=== PATIENT | male | born 1975 | race American Indian/Alaskan Native ===

== ENCOUNTER 2017-11-20 15:45 | Emergency (ER) | payer SELFPAY ==
--- NOTE | 2017-11-20 17:11 | XRay Report ---
FINAL REPORT EXAM: XR FINGER(S) 2+V RT HISTORY: laceration rt index finger TECHNIQUE: 3 views of the right index finger PRIORS: None. FINDINGS: Bandage limits the evaluation. There is no radiographic evidence of definite acute fracture or dislocation. No evidence of osseous lesion. Joint spaces are maintained. There is no evidence of significant degenerative arthrosis. IMPRESSION: No acute skeletal pathology No radiographically visible radiopaque foreign body.
[2017-11-20] MEDS ORDERED: NORCO 5/325 PO ONE (22:48)
[2017-11-20] MEDS ORDERED: BOOSTRIX IM ONE (22:48)
--- NOTE | 2017-11-21 00:04 | Emergency Department Report ---
- General Chief Complaint: Wound/Laceration Stated Complaint: FINGER INJURY Time Seen by Provider: 11/20/17 22:48 Source: patient Mode of arrival: Ambulatory Limitations: No Limitations - History of Present Illness Initial Comments: Patient's a 42-year-old -[place] male who slammed his left index finger into a gate lock presents with left index finger partial avulsion bleeding controlled and field with direct pressure pain is 7/10 throbbing last tetanus shot 2 years ago repairs Onset/Timin -: hour(s) Extremity Location: Left: Hand (index finger ) Place: home Patient Tetanus UTD: Yes Context: accidental Associated Symptoms: pain - Related Data Previous Rx's Medication Instructions Recorded Last Taken Type Acetaminophen/Codeine [Tylenol 1 tab PO Q6H PRN #12 tab 11/21/17 Unknown Rx /Codeine # 3 tab] Bacitracin Zinc Oint [Antibiotic 1 applicatio TP TID 10 Days #1 tube 11/21/17 Unknown Rx Oint] cephALEXin [Keflex] 500 mg PO Q8HR #30 cap 11/21/17 Unknown Rx Allergies Allergy/AdvReac Type Severity Reaction Status Date / Time tramadol AdvReac Vomiting Verified 11/20/17 16:28 ED Review of Systems ROS: Stated complaint: FINGER INJURY Other details as noted in HPI Constitutional: denies: chills, fever Eyes: denies: eye pain, eye discharge, vision change ENT: denies: ear pain, throat pain Respiratory: denies: cough, shortness of breath, wheezing Cardiovascular: denies: chest pain, palpitations Endocrine: no symptoms reported Gastrointestinal: denies: abdominal pain, nausea, diarrhea Genitourinary: denies: urgency, dysuria Musculoskeletal: joint swelling, myalgia Skin: other (left index finger partial avulsion ). denies: rash, lesions Neurological: denies: headache, weakness, paresthesias Psychiatric: denies: anxiety, depression Hematological/Lymphatic: denies: easy bleeding, easy bruising ED Past Medical Hx - Past Medical History Previous Medical History?: No - Surgical History Past Surgical History?: Yes Additional Surgical History: kidney stones - Social History Smoking Status: Current Every Day Smoker Substance Use Type: None - Medications Home Medications: Home Medications Medication Instructions Recorded Confirmed Last Taken Type Acetaminophen/Codeine [Tylenol 1 tab PO Q6H PRN #12 tab 11/21/17 Unknown Rx /Codeine # 3 tab] Bacitracin Zinc Oint [Antibiotic 1 applicatio TP TID 10 Days #1 tube 11/21/17 Unknown Rx Oint] cephALEXin [Keflex] 500 mg PO Q8HR #30 cap 11/21/17 Unknown Rx ED Physical Exam - General Limitations: No Limitations General appearance: alert, in no apparent distress - Head Head exam: Present: atraumatic, normocephalic - Eye Eye exam: Present: normal appearance - ENT ENT exam: Present: mucous membranes moist - Neck Neck exam: Present: normal inspection - Respiratory Respiratory exam: Present: normal lung sounds bilaterally. Absent: respiratory distress - Cardiovascular Cardiovascular Exam: Present: regular rate, normal rhythm. Absent: systolic murmur, diastolic murmur, rubs, gallop - GI/Abdominal GI/Abdominal exam: Present: soft, normal bowel sounds - Rectal Rectal exam: Present: deferred - Extremities Exam Extremities exam: Present: tenderness (left index finger ) - Expanded Upper Extremity Exam Left Hand Wrist exam: Present: tenderness, swelling, laceration, ecchymosis, deformity, erythema, nail avulsion (partial nail alvusion ). Absent: crepidus, dislocation, amputation, subungual hematoma Hand L/R Back: 1 - partial nail avulsion , no bleeding no subungual hematoma Neuro motor exam: Present: wrist extension intact, thumb opposition intact, thumb IP flexion intact, thumb adduction intact, fingers 2-5 abduction intact Neurosensory exam: Present: 2-point discrimination, radial nerve intact, ulnar nerve intact, median nerve intact Vascular: Present: vascular compromise, normal capillary refill, radial pulse, brachial pulse, ulnar pulse. Absent: pulse deficit radial art, pulse deficit ulnar art, pulse deficit brachial art - Back Exam Back exam: Present: normal inspection, full ROM. Absent: tenderness, CVA tenderness (R), CVA tenderness (L), muscle spasm, paraspinal tenderness, vertebral tenderness, rash noted - Neurological Exam Neurological exam: Present: alert, oriented X3, CN II-XII intact (or lower back complaint is while), normal gait, reflexes normal - Psychiatric Psychiatric exam: Present: normal affect - Skin Skin exam: Present: warm, dry, normal color. Absent: rash ED Course Vital Signs 11/20/17 11/20/17 16:24 23:01 Temperature 98.6 F Pulse Rate 81 Respiratory 18 18 Rate Blood Pressure 116/66 O2 Sat by Pulse 96 Oximetry - Laceration /Wound Repair Left Dorsal Hand Wound Location: upper extremity (left index finger ) Wound Length (cm): 1 Wound's Depth, Shape: flap Wound Explored: clean Irrigated w/ Saline (ccs): 60 Betadine Prep?: Yes Anesthesia: 1% Lidocaine Wound Debrided: moderate Wound Repaired With: sutures Suture Size/Type: 4:0 Number of Sutures: 7 Sterile Dressing Applied?: Yes Progress: Left index finger partial avulsion nail is intact wound was Betadine solution & irrigated with 60 mL sterile saline anesthesia with 1% lidocaine plain 2 mL wound irrigated and closed with 4-0 nylon 7 sutures modalities as anchor all bleeding is controlled patient tolerated procedure or minimal distress patient given wound care structures patient verbalized understanding of same patient will follow up PCP N2 to 3 days a wound check ED Medical Decision Making - Medical Decision Making laceration partial avulsion repair completed, see procedure note, all bleeding controlled pt tolerated with minimal distress pt will be dc to home will follow up with orthopedic surgry in 2-3 day wound check all bleeding is controlled at this time steril dress in intact, pt for dc to home in stable condition at this timel Critical care attestation.: If time is entered above; I have spent that time in minutes in the direct care of this critically ill patient, excluding procedure time. ED Disposition Clinical Impression: Fingernail avulsion Qualifiers: Encounter type: initial encounter Qualified Code(s): S61.309A - Unspecified open wound of unspecified finger with damage to nail, initial encounter Fingertip avulsion Qualifiers: Encounter type: initial encounter Qualified Code(s): S61.209A - Unspecified open wound of unspecified finger without damage to nail, initial encounter Disposition: PAT REG,NO TRIAGE Is pt being admited?: No Does the pt Need Aspirin: No Condition: Good Instructions: Skin Avulsion (ED) Prescriptions: Acetaminophen/Codeine [Tylenol /Codeine # 3 tab] 1 tab PO Q6H PRN #12 tab PRN Reason: pain Bacitracin Zinc Oint [Antibiotic Oint] 1 applicatio TP TID 10 Days #1 tube cephALEXin [Keflex] 500 mg PO Q8HR #30 cap Referrals: JAYY WINTER MD [Staff Physician] - 3-5 Days Forms: Work/School Release Form(ED) Time of Disposition: 00:16
[2017-11-21 00:50] VITALS: BP 120/68
== END 2017-11-21 00:50 | disposition left against medical advice (07) ==
LOC: ED 15:45
DX: S61.309A Unspecified open wound of unspecified finger with damage to nail, initial encounter (principal); F17.200 Nicotine dependence, unspecified, uncomplicated; Z88.6 Allergy status to analgesic agent; W23.0XXA Caught, crushed, jammed, or pinched between moving objects, initial encounter; Y93.89 Activity, other specified; Y99.8 Other external cause status; Y92.009 Unspecified place in unspecified non-institutional (private) residence as the place of occurrence of the external cause
CPT/HCPCS: 99283

== ENCOUNTER 2017-11-28 16:20 | Emergency (ER) | payer SELFPAY ==
[2017-11-28 16:29] VITALS: BP 109/70
--- NOTE | 2017-11-28 16:41 | Emergency Department Report ---
Suture/Staple Removal - [facility] Chief Complaint: Laceration/Recheck/Suture Stated Complaint: STITCHS REMOVED Time Seen by Provider: 11/28/17 16:34 When Sutures or Chelsey Placed: 8-10 Days Ago Wound Location: right index finger ED Review of Systems ROS: Stated complaint: STITCHS REMOVED Other details as noted in HPI Constitutional: denies: chills, fever Eyes: denies: eye pain, eye discharge, vision change ENT: denies: ear pain, throat pain Respiratory: denies: cough, shortness of breath, wheezing Cardiovascular: denies: chest pain, palpitations Endocrine: no symptoms reported Gastrointestinal: denies: abdominal pain, nausea, diarrhea Genitourinary: denies: urgency, dysuria Musculoskeletal: denies: back pain, joint swelling, arthralgia Skin: denies: rash, lesions Neurological: denies: headache, weakness, paresthesias Psychiatric: denies: anxiety, depression Hematological/Lymphatic: denies: easy bleeding, easy bruising ED Past Medical Hx - Past Medical History Previous Medical History?: No - Surgical History Past Surgical History?: No Additional Surgical History: kidney stones - Social History Smoking Status: Current Every Day Smoker Substance Use Type: None - Medications Home Medications: Home Medications Medication Instructions Recorded Confirmed Last Taken Type Acetaminophen/Codeine [Tylenol 1 tab PO Q6H PRN #12 tab 11/21/17 Unknown Rx /Codeine # 3 tab] Bacitracin Zinc Oint [Antibiotic 1 applicatio TP TID 10 Days #1 tube 11/21/17 Unknown Rx Oint] cephALEXin [Keflex] 500 mg PO Q8HR #30 cap 11/21/17 Unknown Rx Ibuprofen [Motrin] 600 mg PO Q8H PRN #30 tablet 11/28/17 Unknown Rx Suture Removal Exam - Exam General: Vital signs noted. No distress. Alert and acting appropriately. Wound: Yes Tenderness, No Pathologic Erythema, No Drainage, No Pus, No Wound Dehiscence Other Systems: All other systems reviewed and are unremarkable. ED Course Vital Signs 11/28/17 16:27 Temperature 98.8 F Pulse Rate 91 H Respiratory 16 Rate Blood Pressure 109/70 O2 Sat by Pulse 97 Oximetry ED Recheck MDM - Medical Decision Making 42-year-old male that presents suture removal. 7 stitches has been removed and patient's are well. No signs of dehiscence. Patient tolerated well. No signs of cellulitis. Patient did state that he still has pain so we'll discharge patient with Motrin. Referred to Follow-up with a primary care doctor in 3-5 days or if symptoms worsen and continue return to emergency room as soon as possible. Discharge Critical care attestation.: If time is entered above; I have spent that time in minutes in the direct care of this critically ill patient, excluding procedure time. ED Disposition Clinical Impression: Visit for suture removal Disposition: TO HOME OR SELFCARE Is pt being admited?: No Condition: Stable Instructions: Suture Removal (ED) Additional Instructions: Follow-up with a primary care doctor in 3-5 days or if symptoms worsen and continue return to emergency room as soon as possible. Prescriptions: Ibuprofen [Motrin] 600 mg PO Q8H PRN #30 tablet PRN Reason: Pain Referrals: PRIMARY CAREMD [Primary Care Provider] - 3-5 Days MARLON ALMENDAREZ MD [Staff Physician] - 3-5 Days [facility] [Outside] - 3-5 Days Forms: Work/School Release Form(ED)
== END 2017-11-28 16:48 | disposition home or self-care (01) ==
LOC: ED 16:20
DX: Z48.01 Encounter for change or removal of surgical wound dressing (principal); F17.200 Nicotine dependence, unspecified, uncomplicated